=== PATIENT | male | born 1985 | race Caucasian/White ===

== ENCOUNTER 2019-01-22 17:50 | Emergency (ER) | payer SELFPAY ==
--- NOTE | 2019-01-22 17:56 | PDOC ---
Rapid Medical Evaluation Medical Evaluation: Allergies Allergy/AdvReac Type Severity Reaction Status Date / Time No Known Allergies Allergy Verified 03/15/12 19:29 I have performed a brief in-person evaluation of this patient. The patient presents with a chief complaint of: hx of hemorrhoids c/o BRBPR when wiping and in bowl along with hard stools; sxs going on for past few weeks , has tried OTC stool softener but not getting any better; has not seen any doctor yet regarding this; denies vomiting, abdominal surgeries; last BM was today; denies sob, lightheaded Pertinent physical exam findings: In NAD, abdomen non-tender I have ordered the following: Nothing The patient will proceed to the ED for further evaluation. 01/22/19 17:52
[2019-01-22 18:04] VITALS: BP 113/83; PULSE 79; TEMP 98; BMI 23.6
[2019-01-22] MEDS ORDERED: HYDROCORTISONE 2.5% TOPICAL CREAM 30 GM TUBE PR ONE (19:09)
[2019-01-22] MEDS ORDERED: HYDROCORTISONE ACETATE 25 MG/SUPP.RECT PR ONE (19:09)
--- NOTE | 2019-01-22 19:09 | PDOC ---
History of Present Illness - General Chief Complaint: Rectal Bleed Stated Complaint: ABD PAIN Time Seen by Provider: 01/22/19 17:52 History Source: Patient Exam Limitations: Clinical Condition - History of Present Illness Travel History: No Initial Comments: 01/22/19 19:15 Patient with history of hemorrhoids presented with complaint of over few years history of hemorrhoids which is starting to bleed for the past month. Patient reported he has been using [id number] medication including tox and suppository which has been helping but has not been happening more. Patient reported he has not followed up due to not having insurance since start of his hemorrhoids. Patient reports family history of hemorrhoid with mother having multiple hemorrhoids which she ended up having surgery to fix it. Patient report hard stools and chronic constipation. Patient came to ED because his home medications now with minimal not helping anymore and reported pain when he sits.Denies abdominal pain, nausea, vomiting. Past History - Past Medical History Allergies/Adverse Reactions: Allergies Allergy/AdvReac Type Severity Reaction Status Date / Time No Known Allergies Allergy Verified 01/22/19 17:55 Home Medications: Ambulatory Orders Azithromycin Ivpb [Zithromax Ivpb -] 500 mg PO AM #3 tab 03/15/12 Guaifenesin Dm [Robitussin-Dm] 10 ml PO BID #120 ud 03/15/12 Ibuprofen [Motrin] 800 mg PO TID #60 tablet 03/15/12 No Home Medications 0 dose .ROUTE UTDICT 03/15/12 Hydrocortisone 2.5% Topical Cr [Anusol-Hc -] 1 applic RC BID #1 tube 01/22/19 Lidocaine 5% Top. Ointment [Xylocaine 5% Top. Ointment -] 1 applic TP TID PRN # 1 tube 01/22/19 COPD: No - Psycho Social/Smoking Cessation Hx Smoking Status: Yes Smoking History: Current some day smoker Number of Cigarettes Smoked Daily: 2 Information on smoking cessation initiated: No Review of Systems - Review of Systems Able to Perform ROS?: Yes Is the patient limited Armenian proficient: No Constitutional: No: Chills, Fever, Loss of Appetite HEENTM: No: Symptoms Reported Respiratory: No: Symptoms reported Cardiac (ROS): No: Symptoms Reported ABD/GI: Yes: Symptoms Reported, See HPI, Constipated, Rectal Bleeding, Tarry Stools. No: Abdominal Distended, Abd. Pain w/ defecation, Blood Streaked Bowels , Difficulty Swallowing, Nausea, Poor Appetite, Vomiting, Indigestion, Abdominal cramping : Yes: Symptoms Reported, Other (hemorrhoids) Musculoskeletal: No: Symptoms Reported Integumentary: Yes: Symptoms Reported Neurological: Yes: Other (hemorrhoids). No: Symptoms reported All Other Systems: Reviewed and Negative *Physical Exam - Vital Signs Last Vital Signs Temp Pulse Resp BP Pulse Ox 98 F 79 18 113/83 100 01/22/19 17:51 01/22/19 17:51 01/22/19 17:51 01/22/19 17:51 01/22/19 17:51 - Physical Exam General Appearance: Yes: Nourished, Appropriately Dressed. No: Apparent Distress HEENT: positive: Normal ENT Inspection Neck: positive: Supple Respiratory/Chest: positive: Normal Breath Sounds. negative: Respiratory Distress, Accessory Muscle Use Cardiovascular: positive: Regular Rhythm, Regular Rate Gastrointestinal/Abdominal: positive: Normal Bowel Sounds. negative: Tender Rectal Exam: positive: deferred, hemorrhoids (1mm 1 external hemorrhoid. Patient declined rectal exam) Musculoskeletal: positive: Normal Inspection Extremity: positive: Normal Inspection Integumentary: positive: Normal Color Neurologic: positive: Fully Oriented, Alert, Normal Mood/Affect, Normal Response Medical Decision Making - Medical Decision Making 01/22/19 19:18 Patient with history of hemorrhoids presented with complaint of over few years history of hemorrhoids which is starting to bleed for the past month. Patient reported he has been using [id number] medication including tox and suppository which has been helping but has not been happening more. Patient reported he has not followed up due to not having insurance since start of his hemorrhoids. Patient reports family history of hemorrhoid with mother having multiple hemorrhoids which she ended up having surgery to fix it. Patient report hard stools and chronic constipation. Patient came to ED because his home medications now with minimal not helping anymore and reported pain when he sits.Denies abdominal pain, nausea, vomiting. Exam significant for 1 mm external hemorrhoids. Patient declined rectal exam as it is very painful and feels he has a big internal hemorrhoid. Patient would rather wait to follow-up with GI for rectal exam. Anusol suppository ordered for hemorrhoids and topical cream given. Patient stable for discharge on topical Anusol with GI follow-up for management of her hemorrhoids and chronic constipation Discharge - Discharge Information Problems reviewed: Yes Clinical Impression/Diagnosis: Hemorrhoids without complication Condition: Stable Disposition: HOME - Admission No - Additional Discharge Information Prescriptions: Hydrocortisone 2.5% Topical Cr [Anusol-Hc -] 1 applic RC BID #1 tube Lidocaine 5% Top. Ointment [Xylocaine 5% Top. Ointment -] 1 applic TP TID PRN # 1 tube PRN Reason: hemorrhoids pain - Follow up/Referral Referrals: Escobar Smith MD [Staff Physician] - Jazmin Wasserman MD [Staff Physician] - - Patient Discharge Instructions Patient Printed Discharge Instructions: DI for Hemorrhoids, DI for Rectal Bleeding Additional Instructions: Take medications as prescribed. Follow-up with referred GI for management of hemorrhoids - Post Discharge Activity
[2019-01-22] MEDS ORDERED: ACETAMINOPHEN 325 MG TABLET (FP) ONE (19:25)
== END 2019-01-22 19:19 | disposition home or self-care (01) ==
LOC: JERFT 17:50 → JER 17:50 → JERFT 19:19
DX: K64.9 Unspecified hemorrhoids (principal); Z72.0 Tobacco use
CPT/HCPCS: 99281-25

== ENCOUNTER 2019-01-26 19:44 | Emergency (ER) | payer SELFPAY ==
[2019-01-26 19:56] VITALS: BP 129/72; PULSE 75; TEMP 97.5; BMI 23.6
--- NOTE | 2019-01-26 19:56 | PDOC ---
Rapid Medical Evaluation Time Seen by Provider: 01/26/19 19:53 Medical Evaluation: Allergies Allergy/AdvReac Type Severity Reaction Status Date / Time No Known Allergies Allergy Verified 01/26/19 19:54 01/26/19 19:54 I have performed a brief in-person evaluation of this patient. The patient presents with a chief complaint of: bleeding hemorrhoids, seen 5 days ago and tried to set up appt with colorectal surgeon but insurance "has a problem with it", reports "lot of blood in the toilet whenever i used the bathroom" Pertinent physical exam findings: deferred I have ordered the following: labs, guaiac The patient will proceed to the ED for further evaluation. Discharge Disposition - Diagnosis Hemorrhoids - Referrals - Patient Instructions - Post Discharge Activity
--- NOTE | 2019-01-26 20:27 | PDOC ---
History of Present Illness - General Chief Complaint: Hemorrhoids Stated Complaint: HEMMORRHOIDS Time Seen by Provider: 01/26/19 19:53 - History of Present Illness Initial Comments: 01/26/19 20:25 33-year-old male presents for exacerbation of hemorrhoids. He was placed on a topical cream without relief. He has no systemic symptoms. Past History - Past Medical History Allergies/Adverse Reactions: Allergies Allergy/AdvReac Type Severity Reaction Status Date / Time No Known Allergies Allergy Verified 01/26/19 19:54 Home Medications: Ambulatory Orders Azithromycin Ivpb [Zithromax Ivpb -] 500 mg PO AM #3 tab 03/15/12 Guaifenesin Dm [Robitussin-Dm] 10 ml PO BID #120 ud 03/15/12 Ibuprofen [Motrin] 800 mg PO TID #60 tablet 03/15/12 No Home Medications 0 dose .ROUTE UTDICT 03/15/12 Hydrocortisone 2.5% Topical Cr [Anusol-Hc -] 1 applic RC BID #1 tube 01/22/19 Lidocaine 5% Top. Ointment [Xylocaine 5% Top. Ointment -] 1 applic TP TID PRN # 1 tube 01/22/19 Hydrocortisone Acetate [Anusol Hc Suppository -] 25 mg RC BID #28 supp.rect 03/04 COPD: No - Psycho Social/Smoking Cessation Hx Smoking Status: Yes Smoking History: Current some day smoker Number of Cigarettes Smoked Daily: 4 Information on smoking cessation initiated: No Review of Systems - Review of Systems ABD/GI: Yes: See HPI, Rectal Bleeding *Physical Exam - Vital Signs Last Vital Signs Temp Pulse Resp BP Pulse Ox 97.5 F L 75 20 129/72 100 01/26/19 19:55 01/26/19 19:55 01/26/19 19:55 01/26/19 19:55 01/26/19 19:55 - Physical Exam Comments: 01/26/19 20:25 GENERAL: The patient is awake, alert, and fully oriented, in no acute distress. HEAD: Normal with no signs of trauma. EYES: sclera anicteric, conjunctiva clear. EXTREMITIES: Normal range of motion, no edema. No clubbing or cyanosis. No cords, erythema, or tenderness. NEUROLOGICAL: Cranial nerves II through XII grossly intact. Normal speech, normal gait. PSYCH: Normal mood, normal affect. SKIN: Warm, Dry, normal turgor, no rashes or lesions noted. Rectal exam refused Medical Decision Making - Medical Decision Making 01/26/19 20:[address] patient on Anusol with hydrocortisone and have him follow-up with gastroenterology he is in agreement with the plan Discharge - Discharge Information Problems reviewed: Yes Clinical Impression/Diagnosis: Hemorrhoids Condition: Stable Disposition: HOME - Admission No - Follow up/Referral Referrals: Cheo Villavicencio DO [Staff Physician] - - Patient Discharge Instructions Patient Printed Discharge Instructions: DI for Hemorrhoids Additional Instructions: Return to the emergency room for worsening symptoms. Without fail please follow -up with gastroenterology in 1 to 2 days for further evaluation and treatment options. Discontinue the topical cream and use the suppositories as directed - Post Discharge Activity
== END 2019-01-26 20:39 | disposition home or self-care (01) ==
LOC: JERFT 19:44
DX: K64.9 Unspecified hemorrhoids (principal); F17.210 Nicotine dependence, cigarettes, uncomplicated
CPT/HCPCS: 99281-25